=== PATIENT | male | born 1935 | race Caucasian/White ===

== ENCOUNTER 2021-03-15 11:47 | Inpatient (IN) | payer MEDICARE ==
[2021-03-15 13:15] LABS: Bilirubin Neg (Negative); Blood, Urine 10 (Negative); Clarity Clear (Clear); Glucose, Urine (Dipstick) Normal (Negative); Ketone, Urine Negative (Negative); Leukocyte Negative (Negative); Nitrite Negative (Negative); Protein, Urine (Dipstick) Negative (Neg-Trace); Urobilinogen Normal mg/dL (Less than 2)
[2021-03-15 13:28] LABS: Bacteria/HPF None Seen HPF (None Seen); RBC/HPF 0-3 HPF (0-3); Squamous Epithelial 0-3 HPF (0-3); WBC/HPF None Seen HPF (0-3)
[2021-03-15] MEDS ORDERED: Piperacillin/Tazobactam 3.375 GM VIAL ONE (14:13)
[2021-03-15 14:16] LABS: #Eosinphils 0.3 10x3/uL (0.0-0.5); #Monocytes 0.6 10x3/uL (0.0-1.1); #Neutrophils 5.5 10x3/uL (1.5-8.4); %Basophils 0.5 % (0.0-2.0); %Eosinophils 3.9 % (0.0-6.0); %Monocytes 7.3 % (0.0-10.0); Hemoglobin 11.9 g/dL (13.5-17.5); Mean Corpuscular HGB CONC 32.4 g/dL (32.0-36.0); Mean Corpuscular Hemoglobin 27.9 pg (27.0-33.0); Mean Corpuscular Volume 86.2 fl (81.2-95.1); Mean Platelet Volume 8.8 fl (7.4-10.4); Platelet Count 316 10x3/uL (150-450); RBC Distribution Width 18.2 % (11.5-14.5); Red Blood Cell (RBC) Count 4.26 10x6/uL (4.32-5.72); White Blood Cell (WBC) Count 7.8 10x3/uL (3.5-10.5)
[2021-03-15 14:47] LABS: Bilirubin, Total 0.4 mg/dL (0.2-1.2); Calc. Creatinine Clearance 0 mL/min (70-130); Potassium 3.4 mmol/L (3.5-5.1)
[2021-03-15] MEDS ORDERED: Ondansetron ODT 4 MG TAB PO PRN (15:06)
[2021-03-15] MEDS ORDERED: Ondansetron PF 4 MG/2 ML Vial IVP PRN (15:06)
[2021-03-15] MEDS ORDERED: Acetaminophen 325 MG TAB PO PRN (15:06)
[2021-03-15] MEDS ORDERED: Mineral Oil ENEMA PR SCH (15:15)
[2021-03-15 15:32] LABS: ALT (SGPT) 6 U/L (8-55); AST (SGOT) 13 U/L (5-34); Albumin 3.4 g/dL (3.4-4.8); Alkaline Phosphatase 55 U/L (40-110); Anion Gap 11 mmol/L (10-20); BUN (Urea Nitrogen) 18 mg/dL (8.4-25.7); Calcium 8.4 mg/dL (7.8-10.44); Carbon Dioxide 21 mmol/L (23-31); Chloride 112 mmol/L (98-107); Globulin 3.1 g/dL (2.4-3.5); Glucose 104 mg/dL (83-110); Protein, Total 6.5 g/dL (5.8-8.1); Sodium 141 mmol/L (136-145)
[2021-03-15 16:12] LABS: Lipase 45 U/L (8-78)
[2021-03-15] MEDS ORDERED: Potassium Chloride 20 MEQ TAB PO SCH ×2 (16:15→21:45)
[2021-03-15 21:52] VITALS: BMI 23.3
[2021-03-15] MEDS: Senokot S 8.6-50 MG TAB PO SCH (21:58)
[2021-03-16 04:40] LABS: #Eosinphils 0.6 10x3/uL (0.0-0.5); #Monocytes 0.6 10x3/uL (0.0-1.1); #Neutrophils 3.9 10x3/uL (1.5-8.4); %Basophils 0.6 % (0.0-2.0); %Eosinophils 8.7 % (0.0-6.0); %Lymphocytes 24.6 % (18.0-47.0); %Monocytes 8.3 % (0.0-10.0); %Neutrophils 57.7 % (40.0-75.0); Hemoglobin 11.6 g/dL (13.5-17.5); Mean Corpuscular HGB CONC 32.6 g/dL (32.0-36.0); Mean Corpuscular Hemoglobin 28.2 pg (27.0-33.0); Mean Corpuscular Volume 86.6 fl (81.2-95.1); Mean Platelet Volume 9.1 fl (7.4-10.4); Platelet Count 325 10x3/uL (150-450); RBC Distribution Width 18.6 % (11.5-14.5); Red Blood Cell (RBC) Count 4.11 10x6/uL (4.32-5.72); White Blood Cell (WBC) Count 6.8 10x3/uL (3.5-10.5)
[2021-03-16 04:58] LABS: Anion Gap 13 mmol/L (10-20); BUN (Urea Nitrogen) 20 mg/dL (8.4-25.7); Calc. Creatinine Clearance 69 mL/min (70-130); Calcium 8.4 mg/dL (7.8-10.44); Carbon Dioxide 21 mmol/L (23-31); Chloride 112 mmol/L (98-107); Glucose 95 mg/dL (83-110); Potassium 3.8 mmol/L (3.5-5.1); Sodium 142 mmol/L (136-145)
[2021-03-16] MEDS ORDERED: Fleet Enema 133 ML BOT PR SCH (07:30)
[2021-03-16] MEDS ORDERED: Magnesium Citrate 300 ML BOT PO SCH (07:30)
[2021-03-16] MEDS ORDERED: Milk Of Magnesia 30 ML UDCUP PO SCH (09:00)
[2021-03-16] MEDS: Senokot S 8.6-50 MG TAB PO SCH ×2 (10:09→20:33)
[2021-03-16] MEDS: Polyethylene Glycol 3350 17 GM Packet PO SCH (10:10)
[2021-03-16 12:25] LABS: Anion Gap 13 mmol/L (10-20); BUN (Urea Nitrogen) 17 mg/dL (8.4-25.7); Calc. Creatinine Clearance 75 mL/min (70-130); Calcium 8.6 mg/dL (7.8-10.44); Carbon Dioxide 21 mmol/L (23-31); Chloride 111 mmol/L (98-107); Glucose 96 mg/dL (83-110); Potassium 3.8 mmol/L (3.5-5.1); Sodium 141 mmol/L (136-145)
[2021-03-16 17:56] LABS: SARS-CoV-2 PCR by NAA Not Detected (NotDetected)
[2021-03-17 04:23] LABS: #Eosinphils 0.4 10x3/uL (0.0-0.5); #Monocytes 0.6 10x3/uL (0.0-1.1); #Neutrophils 3.7 10x3/uL (1.5-8.4); %Basophils 0.5 % (0.0-2.0); %Lymphocytes 26.7 % (18.0-47.0); %Monocytes 8.7 % (0.0-10.0); %Neutrophils 57.6 % (40.0-75.0); Hemoglobin 11.1 g/dL (13.5-17.5); Mean Corpuscular HGB CONC 32.6 g/dL (32.0-36.0); Mean Corpuscular Volume 86.1 fl (81.2-95.1); Mean Platelet Volume 8.9 fl (7.4-10.4); Platelet Count 295 10x3/uL (150-450); RBC Distribution Width 18.6 % (11.5-14.5); Red Blood Cell (RBC) Count 3.96 10x6/uL (4.32-5.72); White Blood Cell (WBC) Count 6.5 10x3/uL (3.5-10.5)
[2021-03-17 04:40] LABS: Anion Gap 12 mmol/L (10-20); BUN (Urea Nitrogen) 16 mg/dL (8.4-25.7); Calc. Creatinine Clearance 78 mL/min (70-130); Calcium 8.5 mg/dL (7.8-10.44); Carbon Dioxide 23 mmol/L (23-31); Chloride 111 mmol/L (98-107); Glucose 94 mg/dL (83-110); Potassium 3.9 mmol/L (3.5-5.1); Sodium 142 mmol/L (136-145)
[2021-03-17] MEDS: Polyethylene Glycol 3350 17 GM Packet PO SCH (11:17)
[2021-03-17] MEDS ORDERED: hydrALAZINE 20 MG/ML VIAL SLOW IVP PRN (11:56)
[2021-03-17] MEDS ORDERED: Loratadine 10 MG TAB PO PRN (11:56)
[2021-03-17] MEDS ORDERED: Calcium Carbonate 500 MG ChewTAB PO PRN (11:56)
[2021-03-17] MEDS ORDERED: Cepastat Lozenges 1 LOZ PO PRN (11:56)
[2021-03-17] MEDS ORDERED: GUAIFENESIN SF SOLN 200 MG/10 ML UDCUP PO PRN (11:56)
[2021-03-17] MEDS ORDERED: Bisacodyl 10 MG SUPP PR PRN (11:56)
[2021-03-17] MEDS ORDERED: Sodium Chloride 0.65% Nasal 44 ML BOT EA NARE PRN (11:56)
[2021-03-17] MEDS ORDERED: Acetaminophen 325 MG TAB PO PRN (12:13)
[2021-03-17] MEDS: Senokot S 8.6-50 MG TAB PO SCH ×2 (15:27→20:34)
[2021-03-17] MEDS: Fleet Enema 133 ML BOT PR SCH (15:27)
[2021-03-18] MEDS: Polyethylene Glycol 3350 17 GM Packet PO SCH (08:30)
[2021-03-18] MEDS: Senokot S 8.6-50 MG TAB PO SCH ×2 (08:30→21:04)
[2021-03-18] MEDS: Fleet Enema 133 ML BOT PR SCH (13:26)
[2021-03-19 08:28] VITALS: TEMP 97.4
[2021-03-19] MEDS: Polyethylene Glycol 3350 17 GM Packet PO SCH (08:47)
[2021-03-19] MEDS: Senokot S 8.6-50 MG TAB PO SCH (08:48)
[2021-03-19 11:40] VITALS: BP 180/81
== END 2021-03-19 18:18 | disposition home or self-care (01) | DRG 392 ==
LOC: CSHERS 11:47 → CSHTELE 21:48 → OBSVTOIN 03-16 10:46
PROVIDERS: ADMIT Family Medicine; ATTEND Family Medicine
DX: K52.89 Other specified noninfective gastroenteritis and colitis (principal); I82.503 Chronic embolism and thrombosis of unspecified deep veins of lower extremity, bilateral; I50.32 Chronic diastolic (congestive) heart failure; K59.09 Other constipation; R33.9 Retention of urine, unspecified; N40.0 Benign prostatic hyperplasia without lower urinary tract symptoms; N32.0 Bladder-neck obstruction; E78.5 Hyperlipidemia, unspecified; D75.89 Other specified diseases of blood and blood-forming organs; Z20.822 Contact with and (suspected) exposure to COVID-19; Z85.038 Personal history of other malignant neoplasm of large intestine; Z79.01 Long term (current) use of anticoagulants; Z79.899 Other long term (current) drug therapy; Z90.49 Acquired absence of other specified parts of digestive tract; Z87.891 Personal history of nicotine dependence; Z88.7 Allergy status to serum and vaccine
CPT/HCPCS: 36415; 51701; 74018; 74176; 80048; 80053; 81003; 81015; 83605; 83690; 85025; 96365; 96366; J2543; U0003; U0005

== ENCOUNTER 2024-10-02 09:16 | Outpatient (CLI) | payer MEDICARE | END 2024-10-02 09:17 | disposition home or self-care (01) | LOC: CSHWCC 09:16 | PROVIDERS: ATTEND Nurse Practitioner Family | DX: L89.892 Pressure ulcer of other site, stage 2 (principal); I70.234 Atherosclerosis of native arteries of right leg with ulceration of heel and midfoot; I70.235 Atherosclerosis of native arteries of right leg with ulceration of other part of foot; L97.411 Non-pressure chronic ulcer of right heel and midfoot limited to breakdown of skin; L97.512 Non-pressure chronic ulcer of other part of right foot with fat layer exposed; L08.9 Local infection of the skin and subcutaneous tissue, unspecified; Z89.612 Acquired absence of left leg above knee; Z74.09 Other reduced mobility | CPT/HCPCS: 97597; G0463; 99214 ==

== ENCOUNTER 2024-10-16 10:59 | Outpatient (CLI) | payer MEDICARE | END 2024-10-16 11:00 | disposition home or self-care (01) | LOC: CSHWCC 10:59 | PROVIDERS: ATTEND Nurse Practitioner Family | DX: L89.892 Pressure ulcer of other site, stage 2 (principal); I70.234 Atherosclerosis of native arteries of right leg with ulceration of heel and midfoot; I70.235 Atherosclerosis of native arteries of right leg with ulceration of other part of foot; L97.411 Non-pressure chronic ulcer of right heel and midfoot limited to breakdown of skin; L97.512 Non-pressure chronic ulcer of other part of right foot with fat layer exposed; L97.311 Non-pressure chronic ulcer of right ankle limited to breakdown of skin; Z89.612 Acquired absence of left leg above knee; Z74.09 Other reduced mobility | CPT/HCPCS: 99214; G0463 ==